=== PATIENT | female | born 1950 | race Caucasian/White ===

== ENCOUNTER 2017-02-28 10:01 | Inpatient (IN) | payer MEDICARE ==
[~2017-02-28 10:01] MED LIST: ACETAMINOPHEN 1,000 MG/100 ML BTL IV ONE; CEFAZOLIN 2 Gram 2 GM/50 ML BAG IVPB ONE; FAMOTIDINE 20MG TABLET PO ONE; MECLIZINE 25 MG TABLET PO ONE; METOCLOPRAMIDE 10 MG TABLET PO ONE
[2017-02-28] MEDS ORDERED: OXYCODONE HCL 5 MG TABLET PO PRN (15:40)
[2017-02-28] MEDS ORDERED: TRAMADOL HCL 50 MG TABLET PO PRN ×2 (15:45)
[2017-02-28] MEDS ORDERED: AL HYDROX/MAG HYDROX 30ML UD PO PRN (15:45)
[2017-02-28] MEDS ORDERED: METOCLOPRAMIDE HCL 10 MG/2 ML VIAL IVP PRN (15:45)
[2017-02-28] MEDS ORDERED: ZOLPIDEM TARTRATE 5 MG TABLET PO PRN (15:45)
[2017-02-28] MEDS ORDERED: ONDANSETRON HCL IV 4 MG/2 ML VIAL IVP PRN (15:45)
[2017-02-28] MEDS ORDERED: SENNOSIDES/DOCUSATE SODIUM UD CAPSULE PO PRN (15:45)
[2017-02-28] MEDS ORDERED: MAGNESIUM HYDROXIDE 30 ML UDC PO PRN (15:45)
[2017-02-28] MEDS ORDERED: HYDROMORPHONE HCL 1 MG/ML SYRINGE IVP PRN (15:45)
[2017-02-28] MEDS ORDERED: TRANEXAMIC ACID 1,000 MG in 0.9 % SODIUM CHLORIDE 100ML 100 ML IVPB ONE (16:00)
[2017-02-28] MEDS ORDERED: FENTANYL PF 100MCG/2ML VIAL IV ONE (16:09)
[2017-02-28] MEDS ORDERED: PROPOFOL 10 MG/ML VIAL IV ONE (16:09)
[2017-02-28] MEDS ORDERED: ONDANSETRON HCL IV 4 MG/2 ML VIAL IVP ONE (16:09)
[2017-02-28] MEDS ORDERED: HYDROMORPHONE HCL 2 MG/ML VIAL IV ONE (16:09)
[2017-02-28] MEDS ORDERED: MIDAZOLAM HCL 2MG/2ML VIAL IV ONE (16:09)
[2017-02-28] MEDS: DIPHENHYDRAMINE HCL 25 MG CAPSULE PO PRN ×2 (16:19→22:55)
[2017-02-28] MEDS: RINGERS SOLUTION,LACTATED 1,000 ML IV SCH (16:49)
[2017-02-28] MEDS: ACETAMINOPHEN 1,000 MG/100 ML BTL IV SCH ×2 (17:47→23:24)
--- NOTE | 2017-02-28 18:25 | Rehab Evaluation ---
Patient Information - Patient Information Diagnosis: Left Knee OA Ordered Treatment: PT Evaluate and Treat Status: Initial Evaluation Surgery: Yes (L TKA) Date of Surgery: 02/28/17 History: Detail (Pt. reports slowly progressive worsening of sx.) Past Med/El Hx Detail: Detail (See additional medical information in regard to PMH.) Past Medical/Surgical Hx: PAST MEDICAL/SURGICAL HISTORY Past Surgical History appy partial hyst c scopes PMH - Respiratory Hx Respiratory Disorders Yes Hx Pneumonia Yes: x's 2 Hx Sleep Apnea No: tested negative Hx of SOB Yes: occassionally PMH - Cardiovascular Hx Cardiovascular Disorders Yes Hx Irregular Heartbeat Yes: stress related Hx Palpitations Yes Hx Heart Murmur Yes: possibly Exercise Tolerance Fair PMH - Neuro Hx Neurological Disorders Yes Hx Dizziness Yes Hx Headaches Yes: occassionally related to neck Comment: mild memory loss PMH - GI Hx Gastrointestinal Disorders Yes Hx Gastroesophageal Reflux Yes: fair control Hx Ulcer Yes: at age 6 ? Hx Weight Loss/Weight Gain Yes: 30# PMH - Hx Genitourinary Disorders Yes Hx Bladder Problem Yes: wears pull ups PMH - Endocrine Hx Endocrine Disorders No PMH - Musculoskeletal Hx Musculoskeletal Disorders Yes Hx Arthritis Yes PMH - Psych Hx Psychiatric Problems Yes Hx Anxiety Yes: has had her whole life Hx Depression Yes PMH - Hematology/Oncology Hx Hematology/Oncology No Disorders Premorbid Status: Detail (Pt. reports years of wear and tear.) Social History: Detail (Pt. lives in an apartment complex on the first floor. She has one small step to get into her home. She has a front wheeled walker. Pt. has a high rise seat, tub chair, standard tub. Pt. lives with her and her children are in the area and can provide support.) Precautions: [place], Fall - Time With Patient Total Time Spent With Patient (Min): 30 Treatment Procedures: Detail (Physical Therapy Initial Evaluation Completed. Pt. was left supine with call light available, B IPC, CPM attached, cryo LLE, and nursing was notified of pt. status.) Subjective Information - Subjective Information Per Patient (Pt. reports that prior to PT arrival she got out of bed and went to the bathroom with nursing.) Objective Data - Pain Pain Present: No (Pt. reported 0/10 pain throughout evaluation.) - Mental Status Patient Orientation: Oriented x3 - Visual Perception Appears within normal limits for therapeutic activities - ROM Not within normal limits (L knee set at 0 degrees extension and 60 degrees flexion. L ankle and hip WLF all planes. RLE WFL all planes of movement.) - Strength/Tone Not within normal limits (RLE 5/5 grossly. BUE 5/5 grossly. L knee flexion and extension not tested due to pain with movement. Pt. did I perform SLR LLE.) - Coordination Appears within normal limits for therapeutic activities - Bed Mobility Needs Assist (Pt. required minimal assistance with blood drain and management of operative LE with supine to seated transfer, otherwise she was I with bed mobility.) - Transfers Needs Assist (Pt. required minimal assistance to position her operative LE to avoid twisting.) - Balance Balance Sitting: Good Balance Standing: Fair (Per nursing report, pt. ambulated to bathroom with minimal assistance x1 and did not exhibit difficulty with standing balance.) - Sensation Intact - Gait Detail (Not assessed by PT at this time due to pt. just getting back into bed after walking with nursing.) - ADL's/IADL's Detail (Not assessed.) - Special Tests No Therapy Assessment - Therapy Assessment Detail (Pt. exhibits LE weakness and ROM restriction secondary to surgery. Pt. was not assessed for ambulation at this time.) Patient Education - Patient Education Teaching Topic: Disease Process, Precautions Response: Return Demonstration Teaching Method: Discussion Teaching Recipient: Patient Barriers To Learning: None Problem List - Problem List Physical Therapy Problem List: Detail (1) LE weakness 2) LE ROM restriction 3) Pt. not independent with bed mobility/transfers 4) Pt. not assessed for ambulation household distances 5) Poor positioning of operative LE with bed mobility and supine to seated transfer) Goals - Goals Physical Therapy Goals: 1) Pt. will independently ambulate household distances with or without AD safely. 2) Pt. will be independent with bed mobility and transfer. 3) Pt. will be independent with HEP. 4) Pt. will verbalize understanding of precautions and signs of infection. 5) Pt. will exhibit good standing balance and maintain midline positioning for more than 5 minutes for safe balance. Prognosis - Prognosis Good (Pt. is expected to meet all inpatient PT goals and transition to home environment.) Plan - Plan Physical Therapy Plan: Pt. will be seen 1-2x per day for inpatient PT and be D/ C to home environment once all inpatient PT goals met.
[2017-02-28] MEDS: OXYCODONE HCL 5 MG TABLET PO PRN (19:22)
[2017-02-28] MEDS: CEFAZOLIN 2 Gram 2 GM/50 ML BAG IVPB SCH (20:17)
[2017-02-28] MEDS: ASPIRIN 325 MG TAB ENTERIC-COATED PO SCH (21:55)
[2017-02-28] MEDS ORDERED: MIRTAZAPINE 15 MG TABLET PO SCH (22:00)
[2017-03-01] MEDS: CEFAZOLIN 2 Gram 2 GM/50 ML BAG IVPB SCH ×2 (04:07→11:48)
[2017-03-01] MEDS: OXYCODONE HCL 5 MG TABLET PO PRN ×2 (04:07→10:02)
[2017-03-01] MEDS: ACETAMINOPHEN 1,000 MG/100 ML BTL IV SCH (06:19)
[2017-03-01] MEDS: DIPHENHYDRAMINE HCL 25 MG CAPSULE PO PRN ×2 (06:21→12:27)
[2017-03-01] MEDS ORDERED: PANTOPRAZOLE SODIUM 40 MG TABLET PO SCH (07:00)
[2017-03-01] MEDS ORDERED: FLUOXETINE HCL 20 MG CAPSULE PO SCH (10:00)
[2017-03-01] MEDS ORDERED: SIMVASTATIN 10MG TABLET PO SCH (10:00)
[2017-03-01] MEDS ORDERED: LORATADINE 10 MG TABLET PO SCH (10:00)
[2017-03-01] MEDS ORDERED: FLUTICASONE PROPIONATE 50MCG NASAL 16 GM BTL SCH (10:00)
[2017-03-01] MEDS: ASPIRIN 325 MG TAB ENTERIC-COATED PO SCH (10:01)
--- NOTE | 2017-03-01 10:28 | Rehab Evaluation ---
Patient Information - Patient Information Diagnosis: Left Knee OA Ordered Treatment: OT Evaluate and Treat Status: Initial Evaluation Surgery: Yes (L TKA) Date of Surgery: 02/28/17 History: Detail (Pt. reports slowly progressive worsening of sx.) Past Med/El Hx Detail: Detail (See additional medical information in regard to PMH.) Past Medical/Surgical Hx: PAST MEDICAL/SURGICAL HISTORY Past Surgical History appy partial hyst c scopes PMH - Respiratory Hx Respiratory Disorders Yes Hx Pneumonia Yes: x's 2 Hx Sleep Apnea No: tested negative Hx of SOB Yes: occassionally PMH - Cardiovascular Hx Cardiovascular Disorders Yes Hx Irregular Heartbeat Yes: stress related Hx Palpitations Yes Hx Heart Murmur Yes: possibly Exercise Tolerance Fair PMH - Neuro Hx Neurological Disorders Yes Hx Dizziness Yes Hx Headaches Yes: occassionally related to neck Comment: mild memory loss PMH - GI Hx Gastrointestinal Disorders Yes Hx Gastroesophageal Reflux Yes: fair control Hx Ulcer Yes: at age 6 ? Hx Weight Loss/Weight Gain Yes: 30# PMH - Hx Genitourinary Disorders Yes Hx Bladder Problem Yes: wears pull ups PMH - Endocrine Hx Endocrine Disorders No PMH - Musculoskeletal Hx Musculoskeletal Disorders Yes Hx Arthritis Yes PMH - Psych Hx Psychiatric Problems Yes Hx Anxiety Yes: has had her whole life Hx Depression Yes PMH - Hematology/Oncology Hx Hematology/Oncology No Disorders Premorbid Status: Detail (Pt ind. with ADLs [employer].) Social History: Detail (Pt. lives in an apartment complex on the first floor. She has one small step to get into her home. She has a front wheeled walker. Pt. has a high rise seat, tub chair, standard tub. Pt. lives with her and her children are in the area and can provide support.) Precautions: [place], Fall - Time With Patient Total Time Spent With Patient (Min): 15 (PT also present during eval) Treatment Procedures: Detail (EVAL LOW OT) Subjective Information - Subjective Information Per Patient (Pt's daughter present during evaluation. Pt and Pt's daughter expressed some concern about unsteadiness when ambulating and wondering if pt should stay another day.) Objective Data - Mental Status Patient Orientation: Oriented x3 - Visual Perception Appears within normal limits for therapeutic activities - ROM Within normal limits (BUE's) - Strength/Tone Within normal limits (BUE's) - Coordination Appears within normal limits for therapeutic activities - Transfers Independent (sit<>stand t/f's) - Balance Balance Sitting: Good - Sensation Intact - Gait Detail (Pt amb w/in room w/ 2WW ind.) - ADL's/IADL's Detail (Pt ind. and safe w/ pants don/doff using modified drsg technique. She is able to don/doff R sock and is ind. to doff L sock but dependent to don L sock. Pt states spouse will assist w/ sock and shoe don at home.) Therapy Assessment - Therapy Assessment Detail (Patient tolerated evaluation well. She is safe and ind. w/ pants don/ doff and able to verbalize steps, but will receive help from spouse for sock/ shoe don. Pt has supportive family willing to help w/ anything she may struggle with at home. Discussed wrapping technique of incision during showering to prevent infection. Pt verbalized understanding.) Patient Education - Patient Education Teaching Topic: Other (modified drsg technique) Response: Return Demonstration Teaching Method: Discussion Teaching Recipient: Patient, Family (Pt's daughter present) Barriers To Learning: None Problem List - Problem List Physical Therapy Problem List: Detail (1) LE weakness 2) LE ROM restriction 3) Pt. not independent with bed mobility/transfers 4) Pt. not assessed for ambulation household distances 5) Poor positioning of operative LE with bed mobility and supine to seated transfer) Goals - Goals Physical Therapy Goals: 1) Pt. will independently ambulate household distances with or without AD safely. 2) Pt. will be independent with bed mobility and transfer. 3) Pt. will be independent with HEP. 4) Pt. will verbalize understanding of precautions and signs of infection. 5) Pt. will exhibit good standing balance and maintain midline positioning for more than 5 minutes for safe balance. Prognosis - Prognosis Good Plan - Plan Physical Therapy Plan: Pt. will be seen 1-2x per day for inpatient PT and be D/ C to home environment once all inpatient PT goals met. Occupational Therapy Plan: No continued inpatient OT services needed. Pt will be discharged from inpatient OT at this time.
[2017-03-01] MEDS: RINGERS SOLUTION,LACTATED 1,000 ML IV SCH (10:33)
--- NOTE | 2017-03-01 12:10 | Physical Therapy Tx Note ---
Physical Therapy Tx Note - Treatment Note Tolerated: Good Total Time Spent With Patient: 30 Physical Therapy Tx Note: Detail (The patient was sitting in chair when PT arrived. The patient ambulated with wheeled walker WBAT L LE 50 feet x 1, 30 feet x 1 with supervision for safety only. The patient completed TKA exercises including: heel slides, ankle pumps, quad sets , gluteal sets, hamstring sets, hamstring sets and SLR all x 5 reps. The patient had complaints of level 3 pain and lightheadness. Will see patient this pm.) Physical Therapy Problem List: Detail (1) LE weakness 2) LE ROM restriction 3) Pt. not independent with bed mobility/transfers 4) Pt. not assessed for ambulation household distances 5) Poor positioning of operative LE with bed mobility and supine to seated transfer) Physical Therapy Goals: 1) Pt. will independently ambulate household distances with or without AD safely. 2) Pt. will be independent with bed mobility and transfer. 3) Pt. will be independent with HEP. 4) Pt. will verbalize understanding of precautions and signs of infection. 5) Pt. will exhibit good standing balance and maintain midline positioning for more than 5 minutes for safe balance. Physical Therapy Plan: Pt. will be seen 1-2x per day for inpatient PT and be D/ C to home environment once all inpatient PT goals met.
--- NOTE | 2017-03-01 12:32 | Operative Note ---
DATE OF SURGERY: 02/28/2017 Surgeon: Bogdan Middleton DO PREOPERATIVE DIAGNOSIS: Primary osteoarthritis of the left knee. POSTOPERATIVE DIAGNOSIS: Primary osteoarthritis of the left knee. OPERATION: Left total knee arthroplasty. PROCEDURE: This 66-year-old female was taken to the operating room and placed in the supine position on the operating room table where spinal anesthesia was induced. The left lower extremity was elevated. It was exsanguinated and the tourniquet inflated to 300 mmHg after prepping and draping in the usual sterile fashion. All scrub personnel wore personal isolation suits. An anterior longitudinal midline incision was made followed by a medial parapatellar arthrotomy incision. An intracondylar drill hole was made for the intramedullary alignment radha, and a 5-degree valgus 9 mm cut was made in the distal femur. The wafer of bone was removed. Sizing jig was affixed. Two-size mismatch of the femur was encountered with it being much bigger in the anterior-posterior direction than medial-lateral direction. We elected a compromise by moving the pin sites 2 mm anteriorly and cut a 62.5. It measured a 65 but a size 60 was seen to fit the medial and lateral dimension the best, so in any event, the 62.5 DICTATION ENDS HERE CC: Lakesha Kumar MD [facility] NOBLE HOSPITALCollette
[2017-03-01] MEDS ORDERED: BUPIVACAINE LIPOSOME 266MG/20ML VIAL IV ONE (13:11)
[2017-03-01] MEDS ORDERED: TRANEXAMIC ACID 1,000 MG/10 ML ML IV ONE (13:11)
[2017-03-01] MEDS ORDERED: BUPIVACAINE 0.75% W/EPI MPF 30ML VIAL IVP ONE (13:11)
[2017-03-01] MEDS ORDERED: HYDROCODONE/APAP 5/325MG TABLET PO PRN ×2 (15:40)
[2017-03-01] MEDS ORDERED: OXYCODONE HCL/APAP 5MG/325MG TABLET PO PRN ×2 (15:40)
--- NOTE | 2017-03-01 17:25 | Physical Therapy Tx Note ---
Physical Therapy Tx Note - Treatment Note Tolerated: Good (Pt. tolerated tx without increase in pain. Pt. verbalized willingness to be D/C and was understanding of all exercises, disease processes , and precations.) Total Time Spent With Patient: 15 Physical Therapy Tx Note: Detail (Pt. ambulated 40 feet with front wheeled walker independently. Pt. was independent with bed mobility and transfer. Pt. verbalized understanding of precations. Pt. maintained midline positioning while seated and standing for more than 5 minutes.) Physical Therapy Problem List: Detail (1) LE weakness 2) LE ROM restriction 3) Pt. not independent with bed mobility/transfers 4) Pt. not assessed for ambulation household distances 5) Poor positioning of operative LE with bed mobility and supine to seated transfer) Physical Therapy Goals: 1) Pt. will independently ambulate household distances with or without AD safely. 2) Pt. will be independent with bed mobility and transfer. 3) Pt. will be independent with HEP. 4) Pt. will verbalize understanding of precautions and signs of infection. 5) Pt. will exhibit good standing balance and maintain midline positioning for more than 5 minutes for safe balance. Prognosis: Good (Pt. has met all goals for inpatient PT and is appropriate for D /C.) Physical Therapy Plan: D/C pt. from inpatient PT.
[2017-03-01] MEDS ORDERED: ACETAMINOPHEN 500 MG TABLET PO SCH (22:00)
--- NOTE | 2017-03-05 15:46 | Discharge Summary ---
DATE OF ADMISSION: 02/28/2017 ADMITTING DIAGNOSIS: Osteoarthritis of the left knee. DISCHARGE DIAGNOSIS: Osteoarthritis of the left knee. OPERATIVE PROCEDURE: Elective left total knee arthroplasty. HOSPITAL COURSE: This 66-year-old female was admitted to the hospital for elective total knee arthroplasty and tolerated the operative procedure well. She cleared physical therapy and was functioning satisfactorily with pain control. She will be discharged with instructions to wear her PEDRO hose during the day and remove them at night. She will take aspirin 325 mg daily for 2 weeks. Outpatient physical therapy was arranged. The patient was given a prescription for [place] 5/325 mg, #80, 1-2 every 6 hours as necessary for pain. Routine wound care instructions were given. She will follow up in 2 weeks. Should she have any problems prior to being seen, she was instructed to call my office. MARY
--- NOTE | 2017-03-08 17:30 | Operative Note ---
DATE OF SURGERY: 02/28/2017 SURGEON: Bogdan Middleton DO PREOPERATIVE DIAGNOSIS: Primary osteoarthritis of the left knee. POSTOPERATIVE DIAGNOSIS: Primary osteoarthritis of the left knee. OPERATIVE PROCEDURE: Left total knee arthroplasty. DESCRIPTION: This 66-year-old female was taken to the operating room and placed in the supine position on the operating room table where spinal anesthesia was induced. The left lower extremity was elevated. It was exsanguinated and the tourniquet inflated to 300 mmHg. The left lower extremity was prepped with Hibiclens and draped in the usual sterile fashion. All scrubbed personnel wore personal isolation suits. An anterior longitudinal midline incision was made followed by a medial parapatellar arthrotomy incision. An intercondylar drill hole was made for the intramedullary alignment radha and a 5 degree valgus 9 mm cut was made at the distal femur. The wafer of bone was removed. Sizing jig was affixed and 2-size mismatch was noted on the femur, and it was much larger in the anterior posterior dimension than in the medial lateral direction, so we compromised by moving the pin sites 2 mm anteriorly and cut a 62.5 femur. It measured approximately 65, but a 60 was seen to fit the medial and lateral dimension the best, so in any event, a 62.5 cutting block was used, and it was pinned in 3 degrees of external rotation. Appropriate cuts were made. We then directed our attention to the proximal tibia and an extramedullary alignment guide was used to cut the proximal tibia referencing a 10 mm cut off the lateral tibial plateau and the remnants of menisci and osteophytes were removed from the posterior aspect of the joint. The tibia was sized to a size 67. The stem punch was subsequently used. The wound was copiously irrigated with pulsed lavaged lactated Ringer's solution and trial components were inserted, and a 10 mm bearing was seen to be the appropriate size, which gave us excellent stability throughout the range of motion. We then cut and restored the patella to anatomic height with a 34 x 7.8 mm patella. The trial components were then removed and the wound copiously irrigated with pulsed lavaged lactated Ringer's solution. Exparel was injected into the posterior medial and lateral corners of the joint. All bony surfaces were dried and all components were cemented into place and excess cement removed after the insertion of each component. Initially, we placed the tibial base plate followed by the insertion of the tibial bearing, femoral component, and finally the patella. Once the cement had hardened, the knee was again taken through range of motion and excellent stability identified. The remainder of the Exparel was then injected into the periosteum and joint capsule of the proximal tibia and distal femur. A drain was placed in the wound through a separate stab incision and the arthrotomy incisions were closed with #2 Vicryl, subcutaneous tissue closed with O-Vicryl. The skin was stapled, a Polar Care was applied, and the patient taken to the recovery room in satisfactory condition. GROSS PATHOLOGY: This patient demonstrates severe medial compartment osteoarthritis, full-thickness articular cartilage loss noted there as well as the patellofemoral joint with the lateral compartment showing grade 2 changes. The final components inserted were a [employer] Vanguard size 62.5 cruciate-retaining femoral component, a 67 tibial base plate, a 10 mm anterior stabilized E1 bearing, and a 34 x 7.8 mm patella was used. MARY
== END 2017-03-01 17:25 | disposition home or self-care (01) | DRG 470 ==
LOC: MEDSURG 10:01
PROVIDERS: ADMIT Orthopaedic Surgery; ATTEND Orthopaedic Surgery
PROC: 0SRD069 Replacement of Left Knee Joint with Oxidized Zirconium on Polyethylene Synthetic Substitute, Cemented, Open Approach (ICD-10-PCS; principal; 2017-02-28 13:00)
DX: M17.12 Unilateral primary osteoarthritis, left knee (principal); E78.00 Pure hypercholesterolemia, unspecified
CPT/HCPCS: 97110; 97116; 97165; 97530; J2405; J3490; J7120